=== PATIENT | male | born 1995 | race Asian ===

== ENCOUNTER → 2018-05-25 | Outpatient (CLI) | payer SELFPAY | LOC: AMB 01:18 | PROVIDERS: ATTEND Nurse Practitioner | DX: R06.02 Shortness of breath (principal) | CPT/HCPCS: A0998 ==

== ENCOUNTER 2018-06-29 09:29 | Emergency (ER) | payer OTHER ==
[2018-06-29] MEDS ORDERED: LORazepam 2 MG/ML VIAL IM ONE (10:05)
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
[2018-06-29 10:20] LABS: PLATELET COUNT, AUTOMATED 284 K/uL (150-450)
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
[2018-06-29 18:20] VITALS: BP 124/71
--- NOTE | 2018-06-29 18:22 | EKG ---
FACILITY: [facility] PATIENT NAME: KATERINA GARRIDO : [id number] MR: [id number] V: [id number] EXAM DATE: ORDERING PHYSICIAN: WAGNER VACA TECHNOLOGIST: Test Reason : Blood Pressure : / mmHG Vent. Rate : 071 BPM Atrial Rate : 071 BPM P-R Int : 156 ms QRS Dur : 100 ms QT Int : 392 ms P-R-T Axes : 049 084 065 degrees QTc Int : 425 ms Normal sinus rhythm Normal ECG No previous ECGs available Confirmed by JOSUE CAMACHO ([id number]) on 06/30/2018 7:47:14 AM Referred By: Confirmed By:JOSUE CAMACHO
[2018-06-30] MEDS ORDERED: MULT-859 PO (08:11)
[2018-06-30] MEDS ORDERED: NICO-218 TD (08:11)
[2018-06-30] MEDS ORDERED: MAG-66 PO (08:12)
[2018-06-30] MEDS ORDERED: ACET-1966 PO (08:16)
== END 2018-06-29 18:48 ==
LOC: ER 09:44
DX: F20.0 Paranoid schizophrenia (principal); R41.82 Altered mental status, unspecified
CPT/HCPCS: 36415; 80305; 80320; 80329; 81001; 83735; 84443; 85025; 93005; 96372; 99284; J2060; 82040; 82247; 82310; 82374; 82435; 82565; 82947; 84075; 84132; 84155; 84295; 84450; 84460; 84520

== ENCOUNTER 2018-06-29 18:27 | Inpatient (IN) | payer SELFPAY ==
[~2018-06-29] VITALS: Ht 180.3 cm; Wt 79.4 kg
[2018-06-29] MEDS ORDERED: NICOTINE CARTRIDGE 1 EA PO PRN (18:35)
[2018-06-29] MEDS ORDERED: NICOTINE INH SYSTEM 10 MG/INH INH PRN (18:35)
[2018-06-29] MEDS ORDERED: ACETAMINOPHEN 325 MG TAB PO PRN (18:35)
[2018-06-29] MEDS ORDERED: MAG HYD/AL HYD/SIMETH 30ML UDC PO PRN (18:35)
[2018-06-29] MEDS ORDERED: NICOTINE 21 MG/24 HR PATCH TD SCH (19:00)
[2018-06-29 19:15] VITALS: BP 141/93
[2018-06-29] MEDS ORDERED: diphenhydrAMINE 25 MG CAP PO ONE (20:00)
[2018-06-29] MEDS ORDERED: chlorproMAZINE 25 MG TAB PO ONE (20:00)
[2018-06-30 03:00] VITALS: BP 115/71
[2018-06-30] MEDS ORDERED: MULT-859 PO (08:11)
[2018-06-30] MEDS ORDERED: NICO-218 TD (08:11)
[2018-06-30] MEDS ORDERED: MAG-66 PO (08:12)
[2018-06-30] MEDS ORDERED: ACET-1966 PO (08:16)
[2018-06-30] MEDS ORDERED: MULTIVITAMINS TAB PO SCH (09:00)
--- NOTE | 2018-07-01 16:39 | DISCHARGE SUMMARY ---
DATE OF ADMISSION AND SUBSEQUENT TRANSFER: June 29 to June 30, 2018 Patient was seen briefly in the a.m. of June 30, 2018 at approximately 0800 hours by this provider. FINAL DIAGNOSES PER DSM-V Stimulant intoxication, likely methamphetamine. Psychosis related to stimulant use versus psychosis unspecified. Stimulate use disorder. Cannabis use disorder. REASON FOR STAY ON BEHAVIORAL HEALTH UNIT This is a 22-year-old male who was initially seen in the emergency room on June 29, 2018 due to behavioral health constraints and patient milieu. Patient was unacceptable to be admitted to the Behavioral Health Unit here at [facility]. Ambulance transfer was arranged for patient to travel to [facility] for admission to acute psychiatric care. However, ambulance service was needed for a more medically ill patient and psychiatric patients were not transferred after 5:00 p.m. It was thereby asked by the emergency room that patient be placed on Behavioral Health if at all possible overnight until transfer could be completed. This was arranged and patient was briefly held on the Behavioral Health Unit where the milieu remained inappropriate for the patient to remain any longer. Patient thus transferred out to [facility] on the morning of June 30, 2018. Patient was given chemical restraint in the emergency room, slept through the night. Patient noted to be exhibiting much less signs and symptoms of psychosis in the a.m. of June 30, 2018, and was very cooperative with ambulance transport personnel and this provider. However, rest of interview could not be completed due to time constraints and patient was discharged to EMS services. Patient would have vitals checked en route per EMS staff. Crisis line was given should symptoms return. Patient remained on nicotine replacement therapy and multivitamin with minerals. Patient was noted to respond to 2 mg of lorazepam given once in the emergency room. This likely in combination with the withdrawal of methamphetamine resulted in patient's sedation while on the Behavioral Health Unit. Risks, benefits and alternatives of above transfer plan were discussed, informed consent was given by the patient to proceed with above transfer plan as well as EMS application support technician, and [facility] expecting patient arrival for admission. EDIE
== END 2018-06-30 09:03 | DRG 897 ==
LOC: BHS 18:27
PROVIDERS: ADMIT Psychiatry & Neurology Psychiatry; ATTEND Psychiatry & Neurology Psychiatry
DX: F15.920 Other stimulant use, unspecified with intoxication, uncomplicated (principal); F15.959 Other stimulant use, unspecified with stimulant-induced psychotic disorder, unspecified; F12.90 Cannabis use, unspecified, uncomplicated
CPT/HCPCS: Q0161; Q0163

== ENCOUNTER → 2018-06-29 | Outpatient (CLI) | payer SELFPAY ==
[~2018-06-29] MED LIST: ACET-1966 PO; MAG-66 PO; MULT-859 PO; NICO-218 TD
== END ==
LOC: AMB 09:12
PROVIDERS: ATTEND Nurse Practitioner
DX: R45.851 Suicidal ideations (principal); F15.90 Other stimulant use, unspecified, uncomplicated; R44.0 Auditory hallucinations; F20.9 Schizophrenia, unspecified
CPT/HCPCS: A0425; A0429

== ENCOUNTER → 2018-06-30 | Outpatient (CLI) | payer OTHER | LOC: AMB 08:38 | PROVIDERS: ATTEND Nurse Practitioner | DX: R44.3 Hallucinations, unspecified (principal); R41.82 Altered mental status, unspecified; F20.9 Schizophrenia, unspecified | CPT/HCPCS: A0425; A0428 ==